=== PATIENT | female | born 1970 | race Caucasian/White ===

== ENCOUNTER 2024-10-14 22:34 | Emergency (ER) | payer SELFPAY ==
[~2024-10-14] VITALS: Ht 162.6 cm; Wt 69.0 kg
[2024-10-14 22:58] VITALS: TEMP 37; O2SAT 97
[2024-10-14 23:57] LABS: HCG SCREEN NEGATIVE
[2024-10-15 00:03] LABS: CLARITY URINE TURBID (CLEAR); COLOR URINE RED (YELLOW); LEUKOCYTE ESTERASE URINE 3+ (NEGATIVE); NITRITE URINE POSITIVE (NEGATIVE); OCCULT BLOOD URINE 2+ (NEGATIVE); PROTEIN URINE 2+ (NEGATIVE); SPECIFIC GRAVITY URINE 1.014 (1.005-1.030)
[2024-10-15] MEDS ORDERED: CEPH500C2 MT (00:07)
[2024-10-15] MEDS ORDERED: PHEN-815 MT (00:07)
[2024-10-15 00:33] VITALS: BP 123/79; PULSE 78; RESP 16; O2SAT 98
[2024-10-15 02:33] LABS: GLUCOSE URINE TRACE (NEGATIVE); KETONES URINE TRACE (NEGATIVE)
[2024-10-15 02:35] LABS: RBC URINE TNTC /hpf (0-2)
[2024-10-15 02:39] LABS: SQUAMOUS EPITHELIAL CELL URINE RARE /lpf (RARE/1+)
[2024-10-15 02:42] LABS: BACTERIA URINE TRACE
== END 2024-10-15 00:33 | disposition home or self-care (01) ==
LOC: ER 23:34
DX: N39.0 Urinary tract infection, site not specified (principal); Z98.890 Other specified postprocedural states; Z79.899 Other long term (current) drug therapy
CPT/HCPCS: 81003; 84703; 87077; 87186; 99283